=== PATIENT | male | born 1960 | race Caucasian/White ===

== ENCOUNTER 2018-06-14 11:44 | Emergency (ER) | payer SELFPAY ==
[2018-06-14 11:49] VITALS: BP 157/101; PULSE 92; RESP 16; TEMP 36.5; O2SAT 96
--- NOTE | 2018-06-14 12:16 | DI.REPORT_ITS ---
SYMPTOM/DIAGNOSIS: INTERMITTENT SEVERE RT GROIN PAIN, ? TORSION TESTICULAR ULTRASOUND: Routine examination. The right testicle measures 4.5 by 1.9 by 2.9 cm. It is homogeneous with normal blood flow. No evidence of torsion or mass is seen. The epididymis appears grossly unremarkable. The left testicle measures 3.5 by 1.7 by 2.8 cm. It is homogeneous in echogenicity with normal blood flow. No evidence of intratesticular mass or torsion is seen. There is a solitary 1 mm. microcalcification in the left testis. The left epididymis appears unremarkable. There are small bilateral varicoceles, left greater than right. There is a trace right hydrocele. The right inguinal region was evaluated sonographically. No findings to suggest an inguinal hernia are noted. IMPRESSION: Small bilateral varicoceles, left worse than right. Otherwise negative examination.
--- NOTE | 2018-06-14 12:16 | DI.RPTCT_ITS ---
SYMPTOM/DIAGNOSIS: INTERMITTENT SEVERE RT GROIN PAIN, ? HERNIA VERSUS STONE ABDOMEN AND PELVIC CT: Comparison is made with 05/06/18. CT scan of the abdomen and pelvis was performed without intravenous or oral contrast material. The visualized lung bases show no acute abnormality. There does appear to be diffuse decreased attenuation of the liver suggesting hepatic steatosis. The patient is status post cholecystectomy. No biliary ductal dilatation is seen. The unenhanced visualized portions of the spleen, pancreas and adrenal glands are unremarkable. The kidneys show no evidence of nephrolithiasis or hydronephrosis. The urinary bladder is intact. The prostate gland is enlarged impinging upon the base of the urinary bladder. There are calcifications seen within the urinary bladder which appear to be associated with the enlarged prostate gland. No definite bladder stones are seen. There is diverticulosis of the colon but no evidence of acute diverticulitis. No evidence of bowel obstruction or inflammation. No findings to suggest an acute appendicitis are present. A normal appendix is visualized. The abdominal aorta is of normal caliber. No significant abdominal or pelvic adenopathy, ascites or pneumoperitoneum is seen. Multi level degenerative changes are seen in the spine with central spinal canal stenosis seen at L 4-5 due to the degenerative changes. Old compression deformities are seen throughout the thoracic and lumbar spine. There are old right rib fractures again noted. IMPRESSION: No acute abnormality. No evidence of nephrolithiasis or obstructive uropathy.
[2018-06-14] MEDS: Acetaminophen 500 MG TAB 1000 MG PO (12:35)
[2018-06-14] MEDS: Ketorolac 30 MG/ML VIAL IM (12:36)
[2018-06-14 12:41] LABS: Bilirubin Negative (Negative); Blood Negative (Negative); Clarity Clear; Glucose Negative (Negative); Ketones Negative (Negative); Leukocyte Esterase Negative (Negative); Nitrite Negative (Negative); Specific Gravity >= 1.030 (1.005-1.025); Urobilinogen 0.2 EU/dL (Up TO 0.2); pH 5.5 (5-8)
--- NOTE | 2018-06-14 12:49 | ED.GENADUL_ITS ---
Disposition Clinical Impression: Right flank pain Condition: Good Instructions: Flank Pain (ED) Additional Instructions: Please take the medications as directed. Please follow-up with your primary care provider and urologist as soon as possible. If you notice any worsening of your symptoms, or any new symptoms such as vomiting, diarrhea, fever, chills , shortness of breath, chest pain, numbness, weakness, or fainting , please return immediately to the emergency department for reevaluation. Please follow up with your primary care provider as soon as possible for reassessment and reevaluation. As always, it was a pleasure participating in your medical care today. Prescriptions: Acetaminophen [Tylenol Extra Strength] 1,000 mg PO Q6H 5 Days #60 tab Ibuprofen [Motrin Ib] 600 mg PO Q6H 5 Days #60 tablet Lidocaine 5% [Lidoderm 5% Patch] 1 each TP Q24H #4 patch Referrals: Reji Herring [Primary Care Provider] - Medical Decision Making - Lab Data Laboratory Tests 06/14/18 12:30 Urine Color Yellow Urine Clarity Clear Urine pH 5.5 Ur Specific [place] >= 1.030 H Urine Protein Trace H Urine Ketones Negative Urine Blood Negative Urine Nitrite Negative Urine Bilirubin Negative Urine Urobilinogen 0.2 Ur Leukocyte Esterase Negative Urine Glucose Negative - Medical Decision Making This is a 58-year-old male who presents for evaluation of right groin and scrotal pain. Physical exam is relatively benign with no reproducible abdominal tenderness. No flank tenderness. He demonstrates normal neurologic exam with no signs of saddle anesthesia or any signs of weakness in his extremities whatsoever. Sensation is completely intact. Demonstrates a normal scrotal and testicular exam as well. He does have a history of bladder stone which may be confounding variable. With benign physical exam I am uncertain as to the exact cause of his notable pain. We will get a CT scan as well as an ultrasound to evaluate for any acute process. 2: 47 PM The patient's laboratory workup has returned benign. CT scan of the abdomen and pelvis demonstrates no acute process. No evidence of hernia, significant bony abnormality, aside from an old rib fracture on the right, failure acute process. Ultrasound demonstrates a solitary microcalcification of the left testicle, no evidence of torsion, small bilateral varicoceles, left worse than the right. Trace right hydrocele. Reevaluation the patient's pain and symptoms do appear improved at this time. Repeat physical exam continues to demonstrate a normal neurologic exam, no signs of saddle anesthesia, bowel or bladder incontinence, or other abnormality. Reflexes and strength remain intact. No falls or traumas, negative CT scan eluding for osseous abnormalities, and a negative laboratory workup I feel that it is reasonable for him to be discharged home as he does have resolution of his pain. Fortunately we have not elicited a specific answer to his symptoms. I did discuss with the patient during a prolonged conversation the importance of close follow-up with his PCP, as well as potential MRI imaging on an outpatient basis to look for joint or osseous abnormalities including spinal abnormalities. I do not feel that there is any indication for emergent imaging at this time with no focal neurologic deficits are red flags noted on clinical and physical exam. Discussed red flags which returned the patient understands. I have extensively reviewed the treatment plan and discharge instructions with the patient. I have addressed all patient concerns at this time. The patient was made aware of what symptoms to monitor for that would warrant a return to the emergency department. Discussed the plan with the patient, they demonstrate verbal understanding and agreement with our assessment and plan at this time. History of Present Illness - General Chief complaint: Urinary Stated complaint: GROIN PAIN Time Seen by Provider: 06/14/18 12:15 - History of Present Illness Initial comments: This is a 58-year-old male with a past medical history of a bladder stone for which she sees Dr. Medrano, who presents today for evaluation of right- sided groin pain. Patient states that the symptoms have been present for the last 3 weeks. The symptoms come and go in severity but are always there. They are relieved with soaking in the tub, and laying down, and worsened with movement, activity, standing or sitting. He describes it as a sharp stabbing sensation, and it is a 10 out of 10 at its worse, however it will then go away seemingly spontaneously on its own. He describes the pain as his right groin into his right scrotum. There is no radiation down the leg, or in the abdomen. He does note occasional weakness in the right leg but he is unsure if this is secondary to pain or actual weakness. He denies any trauma, falls, or other pathology. He denies any previous surgeries in this area. He denies any diarrhea, dysuria, hematuria, vomiting, increased urinary frequency. Patient denies any history of STDs. He denies any other complaints at this time. He denies any IV or illicit drug use. He denies any pertinent family history. - Related Data Finasteride 5 mg PO DAILY #90 tab-cap 05/08/18 Acetaminophen [Tylenol Extra Strength] 1,000 mg PO Q6H 5 Days #60 tab 06/14/18 Ibuprofen [Motrin Ib] 600 mg PO Q6H 5 Days #60 tablet 06/14/18 Lidocaine 5% [Lidoderm 5% Patch] 1 each TP Q24H #4 patch 06/14/18 Allergies Allergy/AdvReac Type Severity Reaction Status Date / Time No Known Allergies Allergy Unverified 06/14/18 11:55 Review of Systems Other: 10 point review of systems was performed, pertinent positives and negatives are noted in the history of present illness. General Exam - Other Other exam information: 1.Const: Well-nourished, Well-developed, appearing stated age 2.Eyes: PERRL, no conjunctival injection, and symmetrical lids. 3.ENT: Atraumatic external nose and ears. Moist MM. Neck: Symmetric, trachea midline, No thyromegaly. 4.CVS: +S1/S2, No murmurs or gallops. Peripheral pulses 2+ and equal in all extremities. Brisk capillary refill in all extremities. 5.RESP: Unlabored respiratory effort. Clear to auscultation bilaterally. No wheezes rales or rhonchi 6.GI: Soft, Nontender/Nondistended, No hepatosplenomegaly. No guarding or rebound. No abdominal tenderness on palpation. No evidence of herniation, no bulging on Valsalva. No reproducible tenderness in the pelvic region. Stable hip and pelvis. 7.MSK: Normocephalic/Atraumatic, Extremities w/o deformity or ttp No cyanosis or clubbing, Normal movement of all extremities. No pain with logroll. Normal strength in extremity, No midline tenderness to palpation over the CTLS spine. Normal ROM in flexion, extension, side bend, and rotation. Patient has +5 out of 5 strength in the lower extremities in dorsiflexion and plantarflexion, knee flexion and extension, hip flexion and extension. There is +2 over 2 dorsalis pedis pulses bilaterally. There is normal sensation to the skin with light touch at the foot, knee, and hip. Normal saddle sensation. Good sensation over the deep sural nerve area bilaterally. Rectal exam deferred. Reflexes are +2 over 4 in the patellar reflex bilaterally. +5 out of 5 strength in the medial, ulnar, radial nerve distribution bilaterally in the hands as well as intact light touch sensation to these dermatomes on the hands 8.Skin: Warm, Dry. No rashes or lesions. 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 Sensation grossly intact, no focal neurologic deficits. 10.Psych: (AAO) x3. Appropriate mood and affect Genitourinary exam: Uncircumcised penis, bilaterally descended testicles. Normal cremasteric reflex bilaterally. No testicular tenderness. Mild testicular varicoceles are noted. No tenderness on palpation. No penile discharge, or penile tenderness. Course Vital Signs - 24 hr 06/14/18 11:49 Temperature 36.5 C Pulse 92 H Respiratory 16 Rate Blood Pressure 157/101 Pulse Oximetry 96
[2018-06-14 12:51] LABS: Bacteria Few HPF (Negative); Crystals Negative HPF (Negative); Epithelial Cells Rare HPF (Negative); Mucus Moderate (Negative); RBC Negative (0-2); WBC 0-2 HPF (0-5)
[2018-06-14 12:52] LABS: C & S Indicated? No
[2018-06-14 12:57] LABS: Abs Immature Grans 0.03 k/cumm (0.0-0.09); Absolute Basophil Count 0.02 k/cumm (0.0-0.2); Absolute Eosinophil Count 0.05 k/cumm (0.0-0.7); Absolute Lymphocyte Count 1.35 k/cumm (1.2-3.4); Absolute Monocyte Count 0.72 k/cumm (0.11-0.7); Absolute Neutrophil Count 5.73 k/cumm (1.2-6.7); Basophils % 0.3; Eosinophils % 0.6; Immature Grans % 0.4; Lymphocytes % 17.1; Mean Corp. HGB Concentration 35.6 g/dL (32.0-36.0); Mean Corpuscular Hemoglobin 30.9 pg (27.0-33.0); Mean Platelet Volume 10.4 fL (8.0-11.0); Monocytes % 9.1; Neutrophils % 72.5; Platelet Count 237 x1000/uL (130-400); RBC 5.17 m/cumm (4.50-6.00); RBC Distribution Width 12.8 % (11.8-14.1)
[2018-06-14 13:09] LABS: ALT 70 U/L (12-78); AST 30 U/L (15-37); Albumin 3.7 g/dL (3.4-5.0); Alkaline Phosphatase 118 U/L (46-116); Anion Gap 3.5 mmol/L (3-11); BUN 13 mg/dL (7-18); Bilirubin, Total 0.6 mg/dL (0.2-1.0); CO2 29.5 mmol/L (21.0-32.0); CREATININE 1.01 mg/dL (0.70-1.30); Calcium 8.3 mg/dL (8.5-10.1); Chloride 105 mmol/L (98-107); Glucose 106 mg/dL (70-100); Potassium 4.1 mmol/L (3.5-5.1); Sodium 138 mmol/L (136-145); Total Protein 7.1 g/dL (6.4-8.2)
--- NOTE | 2018-06-14 13:45 | DI.VRAD_ITS ---
EXAM: US Scrotum EXAM DATE/TIME: 06/14/2018 1:28 PM CLINICAL HISTORY: 58 years old, male; Signs and symptoms; Other: Right groin/testicular pain intermittently x 10 days; Prior surgery; Surgery date: 6+ months; Surgery type: Vasectomy TECHNIQUE: Real-time ultrasound of the scrotum with color Doppler and image documentation. COMPARISON: No relevant prior studies available. FINDINGS: Right testicle: Unremarkable. No mass. No torsion. Left testicle: Solitary microcalcification left testis, 1 mm. No torsion. Epididymides: Unremarkable. Scrotum: There are small bilateral varicoceles, left worse than right. Trace right hydrocele. Inguinal canal: No sonographic evidence for right inguinal hernia. IMPRESSION: Small bilateral varicoceles, left worse than right. Preliminary interpretation is based on receipt of 83 image(s). A final report will be issued subsequently. We appreciate the opportunity to be involved in this patient's care. Dictated and Authenticated by: Pam Potter MD. Ordering:SKINNY WALKER MD
--- NOTE | 2018-06-14 14:04 | DI.VRAD_ITS ---
EXAM: CT Abdomen and Pelvis Without Intravenous Contrast EXAM DATE/TIME: 06/14/2018 12:18 PM CLINICAL HISTORY: 58 years old, male; Signs and symptoms; Other: Intermittent severe right groin pain, concern for hernia versus stone TECHNIQUE: Axial computed tomography images of the abdomen and pelvis without intravenous contrast. All CT scans at this facility use at least one of these dose optimization techniques: automated exposure control; mA and/or kV adjustment per patient size (includes targeted exams where dose is matched to clinical indication); or iterative reconstruction. Coronal and sagittal reformatted images were created and reviewed. COMPARISON: CT - ABD/PELVIS WO W CONTRAST 05/06/2018 8:55 AM FINDINGS: Lung bases: Unremarkable. No mass. No consolidation. ABDOMEN: Liver: Mild fatty liver again seen. Gallbladder and bile ducts: Status post cholecystectomy. No ductal dilation. Pancreas: Unremarkable. No ductal dilation. Spleen: Unremarkable. No splenomegaly. Adrenals: Unremarkable. No mass. Kidneys and ureters: Unremarkable. No obstructing stones. No hydronephrosis. Stomach and bowel: Unremarkable. No obstruction. No mucosal thickening. PELVIS: Appendix: No findings to suggest acute appendicitis. Bladder: Unremarkable. No stones. Reproductive: Prostate enlarged measures up to 5.1 cm in diameter. ABDOMEN and PELVIS: Intraperitoneal space: Unremarkable. No free air. No significant fluid collection. Bones/joints: Right chest wall deformity from old rib fractures noted anteriorly. No dislocation. Soft tissues: Unremarkable. Vasculature: Mild atherosclerotic change present in the vasculature. No abdominal aortic aneurysm. Lymph nodes: Unremarkable. No enlarged lymph nodes. IMPRESSION: No acute abnormality seen to account for symptoms. Preliminary interpretation is based on receipt of 407 image(s). A final report will be issued subsequently. We appreciate the opportunity to be involved in this patient's care. Dictated and Authenticated by: Pam Potter MD. Ordering:SKINNY WALKER MD
[2018-06-14 15:00] VITALS: BP 147/99; PULSE 79; RESP 16; TEMP 36.5; O2SAT 97
[2018-06-16 13:25] LABS: Chlamydia Result Negative; GC Result Negative; Specimen Description URINE
== END 2018-06-14 15:01 ==
LOC: ER 07-02 16:15
PROVIDERS: Emergency Provider Student in an Organized Health Care Education/Training Program; PCP Family Medicine
DX: R10.31 Right lower quadrant pain (principal); N50.82 Scrotal pain; Z87.442 Personal history of urinary calculi
CPT/HCPCS: 36415; 80053; 87491; 87591; 96372; 99285; 74176; 76870; 81003; 81015; 85025; 99284; J1885

== ENCOUNTER 2018-07-06 11:22 | Day surgery (SDC) | payer SELFPAY ==
--- NOTE | 2018-07-06 11:28 | W.PM.HP.N ---
Assessment and Plan (1) Gross hematuria: Current visit: Yes Status: Acute For cystoscopy with resection of tissue at the bladder neck. His ultimate treatment will depend on the pathology result. (2) Elevated PSA, less than 10 ng/ml: Current visit: No Status: None CC: Hematuria This is 58 year old man who has a history of pelvic pain and lower urinary tract symptoms. He has seen intermittent gross hematuria. He was evaluated with a CT urogram. His scan showed a nonobstructing right sided kidney stone. He was also found to have an irregular area at the junction of the prostate and bladder. I did a cystoscopy in the office. We identified abnormal mucosa at the bladder neck. Stone was identified trapped in this abnormal mucosa. He presents for resection of this area. Review of Systems Constitutional Denies chills and Reports fatigue Eyes Patient Reports loss of peripheral vision ENT Denies dysphagia Cardiovascular Denies chest pain, Denies syncope and Denies palpitations Respiratory Denies cough and Denies hemoptysis Gastrointestinal Denies dysphagia and Reports vomiting Musculoskeletal Reports arthralgias Neurologic Denies syncope Endocrine Reports fatigue and Denies palpitations Hematologic/Lymphatic Denies easy bleeding PFSH Family History Mother No problems noted. Father No problems noted. Sister No problems noted. Brother No problems noted. Grandfather No problems noted. Grandfather No problems noted. Grandmother No problems noted. Grandmother No problems noted. 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
[2018-07-06 11:48] VITALS: BP 136/101; PULSE 72; RESP 16; TEMP 36.8; O2SAT 96
[2018-07-06] MEDS: Lactated Ringers 1,000 ML 80 ML IV (12:00)
[2018-07-06] MEDS: Lidocaine 2% Jelly 6 ML SYR (13:36)
--- NOTE | 2018-07-06 13:43 | BLADDER_PTH ---
PATIENT: Adiel Rome LOC: [facility] U#:[id number] AGE/SX: 58/M ROOM: RE07/06/[address]: Ki Medrano MD : 1960 BED: DIS: 07/06/2018 SPEC #: [id number] RECD: 07/06/18 17:31 STATUS: SHAUNA RE #: [id number] АНДРЕЙ: 07/06/18 13:[address]: Ki Medrano DEPT: Surgical Specimen RECD BY: Vandana Nichols ENTERED: 07/06/18 17:32 SP TYPE: Bladder OTHR DR: Reji Herring MD Tissues: 1 - BLADDER CURRETTINGS Procedures: GROSS AND MICRO LEVEL 5 Comments: [id number]
--- NOTE | 2018-07-06 13:49 | W.PM.DSUDISC ---
Discharge Plan Disposition Patient Disposition: HOME Condition: Good Discharge Details Reason For Visit: gross hematuria Attending Provider: Ki Medrano Primary Care Provider: Reji Herring Home Meds and New Rx's Prescriptions: Continue finasteride 5 MG tablet 5 mg PO DAILY Qty: 90 RF: 4 acetaminophen [Mapap Extra Strength] 500 MG tablet 1,000 mg PO Q6H 5 Days Qty: 60 RF: 0 lidocaine [Lidoderm] 1 PATCH adhesive patch,medicated 1 ea Topical Q24H Qty: 4 RF: 0 Ibuprofen [Motrin Ib] 200 MG Tablet 600 mg PO Q6H 5 Days Qty: 60 RF: 0 Discharge Instructions Additional Instructions: Remove lackey when pt awake Follow up with me 1 to 2 weeks to review pathology results OK to shower/bathe Activity:: Activity as Tolerated Diet:: no restrictions Discharge Orders Discharge Orders: Discharge Order (Routine); Ordered 07/06/18 Ordered By: Ki Medrano DS: Diagnosis Discharge Diagnosis (1) Gross hematuria: Status: Acute (2) Elevated PSA, less than 10 ng/ml: Status: None
[2018-07-06 14:25] VITALS: BP 124/75; PULSE 78; RESP 18; TEMP 36.4; O2SAT 96
[2018-07-06] MEDS: Phenazopyridine 200 MG TAB PO (14:58)
[2018-07-06] MEDS: Normal Saline Flush 10 ML SYR IV (14:59)
--- NOTE | 2018-07-06 16:28 | ROE_ITS ---
DATE OF OPERATION: July 06, 2018 PREOPERATIVE DIAGNOSIS: Gross hematuria. POSTOPERATIVE DIAGNOSIS: Gross hematuria. PROCEDURE: Cystoscopy; transurethral resection of bladder/prostate lesion; evacuation of bladder sto ne. SURGEON: Ki Medrano M.D. ANESTHESIA: MAC with local. COMPLICATIONS: None. ESTIMATED BLOOD LOSS: Minimal. SPECIMENS OBTAINED: #1. Prostate/bladder tissue. #2. Bladder stone. HISTORY: This is a 58-year-old gentleman who has had intermittent gross hematuria. He also has some chronic pelvic pain. He was evaluated with a CT urogram that demonstrated a nonobstructing kidney s tone as well as what appeared to be a stone within the bladder. We did a cystoscopy in the office. At the bladder neck there was a large amount of inflammatory tiss ue with what appeared to be some calcifications entrapped. He presents now for cystoscopy with resec tion of the abnormal mucosa and evacuation of the stone. OPERATIVE REPORT: The patient was brought to the Operating Room on 07/06/18. He was given preoperati ve IV antibiotics. After successful induction of monitored anesthesia care, he was placed in the yvonne raine lithotomy position. His genitalia was prepped and draped. Two percent Xylocaine jelly was insti lled into the urethra to act as a local anesthetic. A 24 Welsh resectoscope sheath was passed through the urethra into the bladder. We used the visual obturator to reinspect the urethra. The pendulous, bulbous, and membranous urethras all appeared nor mal. The prostatic urethra showed lateral lobe enlargement. Again, we identified the bullous lesion s at the bladder neck as well as the previously identified bladder stone. We removed the visual obturator and switched to an Monreal resectoscope. We resected the abnormal t issue and were able to evacuate the stone. The base of the resected area was cauterized using the co agulation button. The prostate and bladder neck tissue was sent to Pathology for permanent section. The stone was sent separately for chemical analysis. We placed a urethral catheter until the patient was more awake. We plan on removing the catheter cori or to discharge. Follow-up treatments will all depend on his surgical pathology.
== END 2018-07-06 15:40 | disposition home or self-care (01) ==
PROVIDERS: PCP Family Medicine; Visit Provider Urology
PROC: 0TBB8ZX Excision of Bladder, Via Natural or Artificial Opening Endoscopic, Diagnostic (ICD-10-PCS; CPT 52204; principal; 2018-07-06 12:00)
DX: N30.81 Other cystitis with hematuria (principal); N20.0 Calculus of kidney; N21.0 Calculus in bladder; R10.2 Pelvic and perineal pain; R31.0 Gross hematuria; K21.9 Gastro-esophageal reflux disease without esophagitis; N40.0 Benign prostatic hyperplasia without lower urinary tract symptoms
CPT/HCPCS: 52310; 52500; NC; 82360; 88307; J0690; J1100; J2250; J2405

== ENCOUNTER 2018-11-02 16:15 | Outpatient (CLI) | payer SELFPAY | END 2018-11-02 16:35 | PROVIDERS: PCP Family Medicine; Visit Provider Urology | DX: R35.0 Frequency of micturition (principal); R97.20 Elevated prostate specific antigen [PSA] | CPT/HCPCS: 36415; 84154 ==

== ENCOUNTER 2019-01-05 00:31 | Outpatient (CLI) | payer SELFPAY ==
--- NOTE | 2019-01-05 11:25 | DI.US_ITS ---
SYMPTOM/DIAGNOSIS: ? RESIDUAL BLADDER, BLADDER STONE, N21.0, CALCULUS OF BLADDER RENAL ULTRASOUND: The right kidney measures 10.8 by 6.5 by 5.8 cm. The left kidney measures 13.0 by 6.3 by 7.2 cm. A 6 mm. echogenic region is noted in the inferior portion of the right kidney consistent with nephrolithiasis. The prevoid bladder contains 278 cc's. The postvoid bladder contains 252 cc's. The bladder wall is 2 mm. thick. Both ureteral jets were visualized. The prostate measures 5.2 by 5.6 by 5.5 cm. for a volume of 83 cc's. Note is made of what appears to represent a rounded nodule adjacent to the prostate gland which likely represents a lobulated portion of the enlarged prostate. The possibility of a bladder wall mass could not be entirely excluded. This regions measures 11 by 13 by 12 mm. and has minimal color flow. This nodular region is isoechoic with the prostate gland. IMPRESSION: Findings consistent with right nephrolithiasis. Prostate is enlarged and is nodular. There is a question regarding a bladder wall lesion versus a nodular region originating from the prostate as described above. No bladder calculus is demonstrated on today's examination. Correlation of the above findings with the patient's clinical status could include cystoscopy and if appropriate, CT.
== END 2019-01-05 00:51 ==
PROVIDERS: PCP Family Medicine; Visit Provider Urology
DX: N20.0 Calculus of kidney (principal); N40.0 Benign prostatic hyperplasia without lower urinary tract symptoms; N32.89 Other specified disorders of bladder
CPT/HCPCS: 76770

== ENCOUNTER 2019-01-14 09:02 | Observation (INO) | payer SELFPAY ==
[2019-01-11 10:30] VITALS: BP 136/88; PULSE 65; RESP 18; TEMP 34.9; O2SAT 97
[2019-01-14] VITALS (14 sets, daily range): BP systolic 115–152; BP diastolic 23–105; PULSE 55–88; RESP 15–19; TEMP 34.9–36.4; O2SAT 94–100
[2019-01-14] MEDS: Lactated Ringers 1,000 ML 80 ML IV ×2 (06:48→09:09)
--- NOTE | 2019-01-14 07:06 | HPE_ITS ---
Date of service: 01/14/19 Time of Service: 07:03 Assessment and Plan (1) Lower urinary tract symptoms (LUTS): Current visit: No Status: Acute Since he has failed maximal medical therapy, we will proceed with t ransurethral resection of the prostate. The patient would like to avoid an overnight stay if at all possible. We will plan on running bladder irrigation short-term postop and see if he is able to be discharged with his catheter this afternoon. History of Present Illness Chief Complaint: Lower urinary tract symptoms Narrative: This is a 58-year-old gentleman with a history of lower urinary tract symptoms including slow urinary stream and straining to void. He has had stones form in his bladder and be adherent to his prostatic mucosa in the past. We removed his stone cystoscopically. He has failed maximal medical therapy for his LUTS. He presents for transurethral resection of prostate. He denies any current dysuria or complete retention. He has no gross hematuria since his bladder stone has been removed. He does have chronic pelvic pain. We explained that the surgery is expected to help his lower urinary tract symptoms but may have no effect whatsoever on the pelvic pain. Review of Systems Review of Systems No fevers or chills No vision change or dysphasia No diabetes or thyroid. Decreased libido. No shortness of breath, cough or hemoptysis No chest pain or palpitations No nausea, vomiting, hepatitis, ulcers, jaundice, diarrhea or constipation No seizures, strokes or peripheral neuropathy No bleeding disorders or anemia Hx arthralgia. No gout PFSH Family History Mother No problems noted. Father No problems noted. Sister No problems noted. Brother No problems noted. Grandfather No problems noted. Grandfather No problems noted. Grandmother No problems noted. Grandmother No problems noted. Social History Smoking/Tobacco Use Status: Never Drug use: Never Do you feel safe in your relationship?: Yes Meds Home Medications Medication Instructions Recorded Confirmed Type finasteride 5 mg PO DAILY #90 tab-cap 05/08/18 01/14/19 Rx Ibuprofen [Motrin Ib] 600 mg PO Q6H 5 Days #60 tablet 06/14/18 01/14/19 Rx acetaminophen [Mapap Extra 1,000 mg PO Q6H 5 Days #60 tab 06/14/18 01/11/19 Rx Strength] gabapentin 600 mg tablet 600 mg PO HS #90 tab 08/06/18 01/14/19 Rx ibuprofen-diphenhydramine cit 3 tab PO PRN PRN 01/14/19 01/14/19 History [Advil PM] Allergies Allergy/AdvReac Type Severity Reaction Status Date / Time No Known Allergies Allergy Unverified 01/14/19 06:19 Exam Const General: comfortable and no acute distress Neck Neck: normal visual inspection and supple Resp Effort & Inspection: normal respiratory effort Auscultation: clear to auscultation bilaterally Cardio Rate: regular rate Rhythm: regular rhythm GI Inspection: normal to inspection Palpation: soft and nontender Neuro General: alert, awake and oriented x3 Results Last Vital Signs Temp 34.9 C L 01/14/19 06:34 Pulse 65 01/14/19 06:34 Resp 18 01/14/19 06:34 BP 136/88 01/14/19 06:34 Pulse Ox 97 01/14/19 06:34
[2019-01-14] MEDS: ceFAZolin 2 GM/50 ML BAG IVPB (07:36)
[2019-01-14] MEDS: Lidocaine 2% Jelly 6 ML SYR (07:54)
--- NOTE | 2019-01-14 08:55 | PROST_PTH ---
PATIENT: Adiel Rome LOC: U#:[id number] AGE/SX: 58/M ROOM: RE01/14/[address]: Ki Medrano MD : [id number] BED: A DIS: 01/15/2019 SPEC #: [id number] RECD: 01/14/19 12:50 STATUS: SHAUNA REQ #: [id number] АНДРЕЙ: 01/14/19 08:[address]: Ki Medrano DEPT: Surgical Specimen RECD BY: Vandana Nichols ENTERED: 01/14/19 12:50 SP TYPE: PROST OTHR DR: Reji Herring MD Tissues: 1 - PROSTATE CURRETTINGS Procedures: GROSS AND MICRO LEVEL 4 Comments: [id number]
--- NOTE | 2019-01-14 10:34 | ROE_ITS ---
REPORT OF OPERATIVE PROCEDURE DATE OF PROCEDURE January 14, 2019 PREOPERATIVE DIAGNOSIS Lower urinary tract symptoms. POSTOPERATIVE DIAGNOSIS Lower urinary tract symptoms. PROCEDURE Cystoscopy with transurethral resection of the prostate. SURGEON Ki Medrano M.D. ANESTHESIA General. COMPLICATIONS None. ESTIMATED BLOOD LOSS 250 cc HISTORY This is a 58-year-old gentleman who has a history of lower urinary tract symptoms. His symptoms have progressed in spite of maximal medical therapy. He presents now for transurethral resection of his pr ostate. OPERATIVE REPORT The patient was brought to the Operating Room on 01/14/2019. He was given preoperative IV antibiotic s. After successful induction of general anesthesia, he was placed in the dorsal lithotomy position. His genitalia was prepped and draped. 2% Xylocaine jelly was instilled into the urethra. A #24-Icelandic resectoscope sheath was passed through the urethra into the bladder. We used the visual obturator to inspect the urethra with a 30-degree lens. The pendulous, bulbous and membranous urethras all appeared normal. The prostatic urethra showed trilobar enlargement. There were inflammatory polyps on the prostate out toward the verumontanum. A larger amount of inflammatory tissue was seen at the bladder neck, especi ally between the 3 and 6 o'clock positions. The remainder of the bladder showed no papillary or nodular lesions. No additional stones were seen w ithin the bladder (he has a history of bladder stones previously). We then utilized bipolar cautery an Free-lance.ru resectoscope to resect the prostate tissue from the blad toby neck out to the verumontanum. The depth of the resection was down to the prostatitic capsule. All resected tissue was evacuated and sent to Pathology for permanent section. We then switched over to the vaporization button and vaporized the base of the resection and remaining prostate tissue unti l hemostasis had been obtained. The prostatic fossa appeared wide open at the completion of the proce dure. Once all prostate chips and clots were evacuated, we passed a #24-Icelandic hematuria catheter through t he urethra into the bladder. We inflated the catheter balloon with 30 cc of sterile water and hooked the catheter to gravity drainage. We then began continuous bladder irrigation and placed traction on the catheter until the irrigation became clear. The patient tolerated this procedure well with no complications. We estimate that his blood loss was approximately 250 cc.
[2019-01-14] MEDS: traMADol 50 MG TAB PO ×2 (14:17→21:46)
--- NOTE | 2019-01-14 17:52 | NUR.NOTE ---
Nursing Note: 1022: pt arrives to room 231 via stretcher from pacu. pt has CBI in place with pink to cunningham urine. pt moved self from stretcher to bed independently. pt has patent IV to with LR. see vs for further interventions.
[2019-01-14] MEDS: Lactated Ringers 1,000 ML 100 ML IV (18:17)
[2019-01-14] MEDS: Gabapentin 600 MG TAB PO (21:46)
[2019-01-15 00:25] VITALS: BP 134/85; PULSE 98; RESP 18; TEMP 37.1; O2SAT 96
[2019-01-15] MEDS: traMADol 50 MG TAB PO (03:57)
[2019-01-15] MEDS: Lactated Ringers 1,000 ML 100 ML IV (03:58)
[2019-01-15 03:59] VITALS: BP 145/80; PULSE 70; RESP 18; TEMP 36.8; O2SAT 97
[2019-01-15 06:01] LABS: HCT 36.9 % (40.0-50.0)
[2019-01-15 06:15] LABS: Anion Gap 7.5 mmol/L (3-11); BUN 16 mg/dL (7-18); CO2 29.5 mmol/L (21.0-32.0); CREATININE 0.88 mg/dL (0.70-1.30); Calcium 7.9 mg/dL (8.5-10.1); Chloride 104 mmol/L (98-107); Glucose 124 mg/dL (70-100); Potassium 3.7 mmol/L (3.5-5.1); Sodium 141 mmol/L (136-145)
--- NOTE | 2019-01-15 07:42 | W.PM.DS.N ---
Date of service: 01/15/19 Time of Service: 07:42 DS: Diagnosis Discharge Diagnosis (1) Lower urinary tract symptoms (LUTS): Status: Acute Discharge Plan Disposition Patient Disposition: HOME Condition: Stable Discharge Details Reason For Visit: surgery Admit Date/Time: 01/14/19 06:10 Admit Provider: Ki Medrano Attending Provider: Ki Medrano Primary Care Provider: Reji Herring Hospital Course Hospital Course: The patient was taken to the operating room on 01/14/2019 where he underwent a transurethral resection of the prostate. In the postoperative period, he was maintained with an irrigating catheter and continuous bladder irrigation. By postoperative day #1, the irrigant was clear. He remained afebrile and fairly comfortable. He is being discharged to home with his Lackey catheter in place. Home Meds and New Rx's Prescriptions: No Action tramadol 50 mg tablet 50 mg PO Q6H PRN (Reason: pain) Qty: 12 RF: 0 sulfamethoxazole-trimethoprim [Bactrim DS] 800-160 mg tablet 1 tab PO DAILY Qty: 7 RF: 0 finasteride 5 MG tablet 5 mg PO DAILY Qty: 90 RF: 4 gabapentin 600 mg tablet 600 mg PO HS Qty: 90 RF: 4 acetaminophen [Mapap Extra Strength] 500 MG tablet 1,000 mg PO Q6H 5 Days Qty: 60 RF: 0 Ibuprofen [Motrin Ib] 200 MG Tablet 600 mg PO Q6H 5 Days Qty: 60 RF: 0 ibuprofen-diphenhydramine cit [Advil PM] 200-38 mg Tablet 3 tab PO PRN PRNRF: 0 Discharge Instructions Additional Instructions: lackey to leg bag no lifting/straining OK to drive OK to shower F/U early next week for catheter removal script for pain med printed and signed script for antibiotic sent to [facility] [place] Activity:: see above Equipment/Supplies:: lackey to leg bag Diet:: As Tolerated Discharge Orders Discharge Orders: Discharge Order (Routine); Ordered 01/15/19 Ordered By: Ki Medrano DS: Data Vitals/I&O Vitals and I&O: Vital Signs Temperature 36.8 C 01/15/19 03:59 Temperature Source Temporal Artery Scan 01/15/19 03:59 Pulse 70 01/15/19 03:59 Pulse Rhythm Regular 01/14/19 06:34 Respiratory Rate 18 01/15/19 03:59 Respiratory Effort Non-Labored 01/15/19 00:25 Respiratory Depth Normal 01/15/19 00:25 Respiratory Pattern Normal 01/15/19 00:25 Blood Pressure 145/80 H 01/15/19 03:59 Pulse Oximetry 97 01/15/19 03:59 Respiratory End-tidal CO2 44 01/14/19 09:50 Oxygen Delivery Method Room Air 01/15/19 03:59 Oxygen Flow Rate 0 01/15/19 03:59 Pain Level 5 01/14/19 14:17 Intake & Output 01/14/19 01/14/19 01/15/19 11:59 23:59 11:59 Intake Total 1150 / 1730 580 / 1730 2168.333 / 2168.333 Balance 1150 / 1730 580 / 1730 2168.333 / 2168.333 Weight 105.9 kg Intake: IV 1150 / 1250 100 / 1250 1968.333 / 1968.333 Oral 480 / 480 200 / 200 Other: Urine Color Nix Nix [place] Urine Appearance Clear Hematuria Hematuria Hematuria Stool Size Moderate Stool Characteristics Soft Liquid Brown Emesis Description None Labs on day of discharge: Labs from last 24 hours 01/15/19 01/15/19 05:50 05:50 Hgb 13.0 L Hct 36.9 L Sodium 141 Potassium 3.7 Chloride 104 Carbon Dioxide 29.5 Anion Gap 7.5 BUN 16 Creatinine 0.88 Estimated GFR/1.73 m2 >= 60.00 Glucose 124 H Calcium 7.9 L [facility] Medical History Gross hematuria (Acute) BPH (benign prostatic hyperplasia) (Chronic) Varicocele present on ultrasound of scrotum (Chronic) Elevated PSA, less than 10 ng/ml Surgical History History of cystoscopy (Acute) Cholecystectomy (08/26/17) Family History Mother No problems noted. Father No problems noted. Sister No problems noted. Brother No problems noted. Grandfather No problems noted. Grandfather No problems noted. Grandmother No problems noted. Grandmother No problems noted. Social History Smoking/Tobacco Use Status: Never Drug use: Never Do you feel safe in your relationship?: Yes
--- NOTE | 2019-01-15 07:45 | DSE_ITS ---
Date of service: 01/15/19 Time of Service: 07:42 DS: Diagnosis Discharge Diagnosis (1) Lower urinary tract symptoms (LUTS): Status: Acute Discharge Plan Disposition Patient Disposition: HOME Condition: Stable Discharge Details Reason For Visit: surgery Admit Date/Time: 01/14/19 06:10 Admit Provider: Ki Medrano Attending Provider: Ki Medrano Primary Care Provider: Reji Herring Hospital Course Hospital Course: The patient was taken to the operating room on 01/14/2019 where he underwent a transurethral resection of the prostate. In the postoperative period, he was maintained with an irrigating catheter and continuous bladder irrigation. By postoperative day #1, the irrigant was clear. He remained afebrile and fair ly comfortable. He is being discharged to home with his Lackey catheter in place. Home Meds and New Rx's Prescriptions: No Action tramadol 50 mg tablet 50 mg PO Q6H PRN (Reason: pain) Qty: 12 RF: 0 sulfamethoxazole-trimethoprim [Bactrim DS] 800-160 mg tablet 1 tab PO DAILY Qty: 7 RF: 0 finasteride 5 MG tablet 5 mg PO DAILY Qty: 90 RF: 4 gabapentin 600 mg tablet 600 mg PO HS Qty: 90 RF: 4 acetaminophen [Mapap Extra Strength] 500 MG tablet 1,000 mg PO Q6H 5 Days Qty: 60 RF: 0 Ibuprofen [Motrin Ib] 200 MG Tablet 600 mg PO Q6H 5 Days Qty: 60 RF: 0 ibuprofen-diphenhydramine cit [Advil PM] 200-38 mg Tablet 3 tab PO PRN PRNRF: 0 Discharge Instructions Additional Instructions: lackey to leg bag no lifting/straining OK to drive OK to shower F/U early next week for catheter removal script for pain med printed and signed script for antibiotic sent to [facility] [place] Activity:: see above Equipment/Supplies:: lackey to leg bag Diet:: As Tolerated Discharge Orders Discharge Orders: Discharge Order (Routine); Ordered 01/15/19 Ordered By: Ki Medrano DS: Data Vitals/I&O Vitals and I&O: Vital Signs Temperature 36.8 C 01/15/19 03:59 Temperature Source Temporal Artery Scan 01/15/19 03:59 Pulse 70 01/15/19 03:59 Pulse Rhythm Regular 01/14/19 06:34 Respiratory Rate 18 01/15/19 03:59 Respiratory Effort Non-Labored 01/15/19 00:25 Respiratory Depth Normal 01/15/19 00:25 Respiratory Pattern Normal 01/15/19 00:25 Blood Pressure 145/80 H 01/15/19 03:59 Pulse Oximetry 97 01/15/19 03:59 Respiratory End-tidal CO2 44 01/14/19 09:50 Oxygen Delivery Method Room Air 01/15/19 03:59 Oxygen Flow Rate 0 01/15/19 03:59 Pain Level 5 01/14/19 14:17 Intake & Output 01/14/19 01/14/19 01/15/19 11:59 23:59 11:59 Intake Total 1150 / 1730 580 / 1730 2168.333 / 2168.333 Balance 1150 / 1730 580 / 1730 2168.333 / 2168.333 Weight 105.9 kg Intake: IV 1150 / 1250 100 / 1250 1968.333 / 1968.333 Oral 480 / 480 200 / 200 Other: Urine Color Nix Nix [place] Urine Appearance Clear Hematuria Hematuria Hematuria Stool Size Moderate Stool Characteristics Soft Liquid Brown Emesis Description None Labs on day of discharge: Labs from last 24 hours 01/15/19 01/15/19 05:50 05:50 Hgb 13.0 L Hct 36.9 L Sodium 141 Potassium 3.7 Chloride 104 Carbon Dioxide 29.5 Anion Gap 7.5 BUN 16 Creatinine 0.88 Estimated GFR/1.73 m2 >= 60.00 Glucose 124 H Calcium 7.9 L [facility] Medical History Gross hematuria (Acute) BPH (benign prostatic hyperplasia) (Chronic) Varicocele present on ultrasound of scrotum (Chronic) Elevated PSA, less than 10 ng/ml Surgical History History of cystoscopy (Acute) Cholecystectomy (08/26/17) Family History Mother No problems noted. Father No problems noted. Sister No problems noted. Brother No problems noted. Grandfather No problems noted. Grandfather No problems noted. Grandmother No problems noted. Grandmother No problems noted. Social History Smoking/Tobacco Use Status: Never Drug use: Never Do you feel safe in your relationship?: Yes
[2019-01-15 07:50] VITALS: BP 159/93; PULSE 89; RESP 18; TEMP 36.5; O2SAT 99
--- NOTE | 2019-01-15 07:56 | W.PM.PROGNOT ---
Date of Service Date of service: 01/15/19 Time of Service: 07:56 Assessment and Plan (1) Lower urinary tract symptoms (LUTS): Current visit: No Status: Acute We will discontinue bladder irrigation and IV fluids. Long as his urine remains transparent, he can be discharged later today. He will follow-up in my office next week to have his catheter removed. Subjective Interval history since last seen: He remained fairly comfortable overnight. He did require BNO suppository for spasms, but did not have any clot retention. Exam Narrative Exam Narrative: He is in no current distress. He is cooperative. Vital signs are documented elsewhere. His urine is clear with slow CBI. He is awake and alert Objective Objective Clinical Data: Abnormal lab results 01/15/19 01/15/19 Range/Units 05:50 05:50 Hgb 13.0 L (13.5-17.5) g/dL Hct 36.9 L (40.0-50.0) % Glucose 124 H (70-100) mg/dL Calcium 7.9 L (8.5-10.1) mg/dL Vital Signs Temperature 36.8 C 01/15/19 03:59 Temperature Source Temporal Artery Scan 01/15/19 03:59 Pulse 70 01/15/19 03:59 Pulse Rhythm Regular 01/14/19 06:34 Respiratory Rate 18 01/15/19 03:59 Respiratory Effort Non-Labored 01/15/19 00:25 Respiratory Depth Normal 01/15/19 00:25 Respiratory Pattern Normal 01/15/19 00:25 Blood Pressure 145/80 H 01/15/19 03:59 Pulse Oximetry 97 01/15/19 03:59 Respiratory End-tidal CO2 44 01/14/19 09:50 Oxygen Delivery Method Room Air 01/15/19 03:59 Oxygen Flow Rate 0 01/15/19 03:59 Pain Level 5 01/14/19 14:17 Intake & Output 01/14/19 01/14/19 01/15/19 11:59 23:59 11:59 Intake Total 1150 / 1730 580 / 1730 2168.333 / 2168.333 Balance 1150 / 1730 580 / 1730 2168.333 / 2168.333 Weight 105.9 kg Intake: IV 1150 / 1250 100 / 1250 1968.333 / 1968.333 Oral 480 / 480 200 / 200 Other: Urine Color Nix Nix [place] Urine Appearance Clear Hematuria Hematuria Hematuria Stool Size Moderate Stool Characteristics Soft Liquid Brown Emesis Description None Laboratory Results Hgb 13.0 g/dL (13.5-17.5) L 01/15/19 05:50 Hct 36.9 % (40.0-50.0) L 01/15/19 05:50 Sodium 141 mmol/L (136-145) 01/15/19 05:50 Potassium 3.7 mmol/L (3.5-5.1) 01/15/19 05:50 Chloride 104 mmol/L (98-107) 01/15/19 05:50 Carbon Dioxide 29.5 mmol/L (21.0-32.0) 01/15/19 05:50 Anion Gap 7.5 mmol/L (3-11) 01/15/19 05:50 BUN 16 mg/dL (7-18) 01/15/19 05:50 Creatinine 0.88 mg/dL (0.70-1.30) 01/15/19 05:50 Estimated GFR/1.73 m2 >= 60.00 (mL/min/1.73m2) 01/15/19 05:50 Glucose 124 mg/dL (70-100) H 01/15/19 05:50 Calcium 7.9 mg/dL (8.5-10.1) L 01/15/19 05:50
[2019-01-15] MEDS: Finasteride 5 MG TAB PO (08:53)
--- NOTE | 2019-01-15 10:40 | INITIAL_ITS ---
- If Service Date Differs Date of service: 01/15/19 Time of Service: 07:47 Care Management Initial Assess REASON FOR HOSPITALIZATION:: TURP PAST MEDICAL HISTORY/PAST SURGICAL HISTORY:: Flank pain, gallstones, Decreased libido, LUTS, Gross Hematuria PREVIOUS FUNCTIONAL STATUS/SOCIAL/FAMILY SUPPORTS:: Burton resides in [place]. He is independent at baseline, drives, and manages ADL's CURRENT FUNCTIONAL STATUS:: Currently Burton is sitting up in bed, pleasant and receptive to discussion. 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 Herring POTENTIAL DISCHARGE NEEDS:: F/U appointment with Dr. Medrano PATIENT/FAMILY EDUCATION NEEDS:: Review DC instructions, any limitations, and ongoing DC planning discussion. Discuss 'Ask Me Three' ANTICIPATED BARRIERS TO DISCHARGE:: None identified at this time TRANSPORTATION:: Burton has his car in the parking lot and is planning on transporting himself home. PLAN:: Burton will return home with no services. He will F/U with Dr. Medrano and plan of care as prescribed. He will drive himself home.
== END 2019-01-15 11:10 | disposition home or self-care (01) ==
LOC: MS 01-15 08:42 → SUR 01-15 15:08 → PDS 01-15 15:11 → SUR 01-15 15:49 → MS 01-15 15:51
PROVIDERS: Admitting Provider Urology; PCP Family Medicine; Visit Provider Urology
PROC: 0VT08ZZ Resection of Prostate, Via Natural or Artificial Opening Endoscopic (ICD-10-PCS; CPT 52601; principal; 2019-01-14 07:30)
DX: R39.16 Straining to void; R39.12 Poor urinary stream; N21.0 Calculus in bladder; N40.3 Nodular prostate with lower urinary tract symptoms; N40.1 Benign prostatic hyperplasia with lower urinary tract symptoms; N41.1 Chronic prostatitis; N42.89 Other specified disorders of prostate
CPT/HCPCS: 52601; 36415; 80048; 88305; NC; 85014; 85018; G0378; J0690; J1100; J1885; J2250; J2405; J3010

== ENCOUNTER 2019-01-16 10:22 | Emergency (ER) | payer SELFPAY ==
[2019-01-16 10:27] VITALS: BP 131/87; PULSE 89; RESP 14; TEMP 37; O2SAT 94
--- NOTE | 2019-01-16 10:44 | W.ED.GENAD ---
Discharge Plan Disposition Patient Disposition: HOME Condition: Good Discharge Details Chief Complaint: Urinary Clinical Impression: Bladder spasm Primary Care Provider: Reji Herring ED Provider: Ming Butler Home Meds and New Rx's Prescriptions: New oxybutynin chloride 5 mg tablet 5 mg PO Q6H PRN PRN (Reason: bladder spasms) Qty: 2 RF: 0 No Action tramadol 50 mg tablet 50 mg PO Q6H PRN (Reason: pain) Qty: 12 RF: 0 sulfamethoxazole-trimethoprim [Bactrim DS] 800-160 mg tablet 1 tab PO DAILY Qty: 7 RF: 0 finasteride 5 MG tablet 5 mg PO DAILY Qty: 90 RF: 4 gabapentin 600 mg tablet 600 mg PO HS Qty: 90 RF: 4 acetaminophen [Mapap Extra Strength] 500 MG tablet 1,000 mg PO Q6H 5 Days Qty: 60 RF: 0 Ibuprofen [Motrin Ib] 200 MG Tablet 600 mg PO Q6H 5 Days Qty: 60 RF: 0 ibuprofen-diphenhydramine cit [Advil PM] 200-38 mg Tablet 3 tab PO PRN PRNRF: 0 Discharge Instructions Instructions: Overactive Bladder (GEN) Additional Instructions: Please take the suppository every 6 hours. Do not take it after midnight. Please take the oxybutynin as needed every 6 hours, do not take it after midnight. Please follow-up immediately with Dr. Medrano at your scheduled appointment tomorrow morning for removal of your Wilkinson. If you notice any worsening of your symptoms, or any new symptoms such as vomiting, diarrhea, fever, chills, shortness of breath, chest pain, numbness, weakness, or fainting , please return immediately to the emergency department for reevaluation. Please follow up with your primary care provider as soon as possible for reassessment and reevaluation. As always, it was a pleasure participating in your medical care today. Referrals: Ki Medrano MD [ [facility] STAFF PHYSICIAN] - Medical Decision Making This is a pleasant 58-year-old male who just had prostate surgery 3 days ago and is taking tramadol for pain who presents for leaking around his Wilkinson catheter site, as well as blood clots in his Wilkinson catheter bag. He does have associated symptoms of hesitancy, and frequency. Physical exam demonstrates a nontender suprapubic region, no overly distended bladder on exam, and no active discharge around his urethra, blood clots are noted in the bag. We will give the patient oxybutynin, flush his catheter, attempted to remove the clots, and reassess. Wilkinson catheter does appear in place otherwise. Secondary to the surgery I will not be deflating the balloon at this time. 12:04 PM 200 cc of normal saline were instilled, and then the same amount of saline was extracted through the Wilkinson catheter. Small amount of blood, no clots. Urine does appear to be flowing freely through the catheter. Patient's symptoms are minimally improved with oxybutynin. No signs of significant distress. No significant pain. I did contact Dr. Medrano discussed the case with him. He agrees that this is a side effect from the surgery, and does recommend belladonna and opium suppositories, and then close follow-up Friday morning for removal of the Wilkinson. He recommends that we maintain the Wilkinson at this time. Patient has been given his first suppository here and will be given to to go home with. He also be given a prescription for oxybutynin to use as needed. Dr. Medrano does recommend that he takes no oxybutynin after midnight as this could cause retention when the Wilkinson was subsequently removed. We discussed red flags which to return, the importance of his continued follow-up. I have extensively reviewed the treatment plan and discharge instructions with the patient. I have addressed all patient concerns at this time. The patient was made aware of what symptoms to monitor for that would warrant a return to the emergency department. Discussed the plan with the patient, they demonstrate verbal understanding and agreement with our assessment and plan at this time. HPI General Date/Time Provider Initiated Documentation: 01/16/19 10:34. HPI Narrative: This is a 58-year-old male with a past medical history of prostate problems, who recently had prostate surgery [address] Medrano, who presents today for leaking around his Wilkinson catheter. Wilkinson catheter was placed after the surgery, initially he had no significant problems with bleeding. However last night he noticed some clots, and since then he has been having symptoms of urinary frequency, feelings that he needs to pee, and leaking around his catheter site. Patient it does admit to burning as the urine does leak around. Does admit to occasional clots noted in the urine. He is still having urine that is going into the Wilkinson bag, as well as some clots. The patient denies any other symptoms of abdominal pain, back pain, fever or chills. No other modifying factors. Is not on blood thinners. He is not taking any bladder antispasmodics. He is taking tramadol for pain. Related Data Home Medications Medication Instructions Recorded Confirmed finasteride 5 mg PO DAILY #90 tab-cap 05/08/18 01/16/19 Ibuprofen [Motrin Ib] 600 mg PO Q6H 5 Days #60 tablet 06/14/18 01/16/19 acetaminophen [Mapap Extra 1,000 mg PO Q6H 5 Days #60 tab 06/14/18 01/16/19 Strength] gabapentin 600 mg tablet 600 mg PO HS #90 tab 08/06/18 01/16/19 ibuprofen-diphenhydramine cit 3 tab PO PRN PRN 01/14/19 01/16/19 [Advil PM] sulfamethoxazole 800 1 tab PO DAILY #7 tab 01/15/19 01/15/19 mg-trimethoprim 160 mg tablet tramadol 50 mg tablet 50 mg PO Q6H PRN #12 tab 01/15/19 01/16/19 oxybutynin chloride 5 mg PO Q6H PRN PRN #2 tab 01/16/19 Previous Rx's Medication Instructions Recorded finasteride 5 mg PO DAILY #90 tab-cap 05/08/18 Ibuprofen [Motrin Ib] 600 mg PO Q6H 5 Days #60 tablet 06/14/18 acetaminophen [Mapap Extra 1,000 mg PO Q6H 5 Days #60 tab 06/14/18 Strength] gabapentin 600 mg tablet 600 mg PO HS #90 tab 08/06/18 sulfamethoxazole 800 1 tab PO DAILY #7 tab 01/15/19 mg-trimethoprim 160 mg tablet tramadol 50 mg tablet 50 mg PO Q6H PRN #12 tab 01/15/19 oxybutynin chloride 5 mg PO Q6H PRN PRN #2 tab 01/16/19 Allergies Allergy/AdvReac Type Severity Reaction Status Date / Time No Known Allergies Allergy Unverified 01/16/19 10:31 General Stated Complaint: Urinary JEREMY: 3 Review of Systems Review of Systems All systems reviewed & are unremarkable except as noted in HPI and below PFSH Social History Smoking/Tobacco Use Status: Never Drug use: Never Do you feel safe at home: Yes Do you feel safe in your relationship?: Yes Exam Narrative Exam Narrative: 1.Const: Well-nourished, Well-developed, appearing stated age 2.Eyes: PERRL, no conjunctival injection, and symmetrical lids. 3.ENT: Atraumatic external nose and ears. Moist MM. Neck: Symmetric, trachea midline, No thyromegaly. 4.CVS: +S1/S2, No murmurs or gallops. Peripheral pulses 2+ and equal in all extremities. Brisk capillary refill in all extremities. 5.RESP: Unlabored respiratory effort. Clear to auscultation bilaterally. No wheezes rales or rhonchi 6.GI: Soft, Nontender/Nondistended, No hepatosplenomegaly. No guarding or rebound. Wilkinson catheter is in place. No evidence of leaking at this time, however certainly a historical component is present. There is evidence of clots in his Wilkinson bag. No evidence of clots in the catheter that I can view. No penile tenderness, no significant suprapubic tenderness. No flank or CVA tenderness. 7.MSK: Normocephalic/Atraumatic, Extremities w/o deformity or ttp No cyanosis or clubbing, Normal movement of all extremities 8.Skin: Warm, Dry. No rashes or lesions. 9.Neuro: aerial photograph interpreter II-XII grossly intact. Sensation grossly intact, no focal neurologic deficits. 10.Psych: (AAO) x3. Appropriate mood and affect Course Vital Signs Temperature 37.0 C 01/16/19 10:27 Pulse 89 01/16/19 10:27 Respiratory Rate 14 01/16/19 10:27 Blood Pressure 131/87 01/16/19 10:27 Pulse Oximetry 94 L 01/16/19 10:27 Temperature 37.0 C 01/16/19 10:27 Temperature Source Temporal Artery Scan 01/16/19 10:27 Pulse 89 01/16/19 10:27 Respiratory Rate 14 01/16/19 10:27 Respiratory Effort Non-Labored 01/16/19 10:29 Blood Pressure 131/87 01/16/19 10:27 Blood Pressure Position Sitting 01/16/19 10:27 Pulse Oximetry 94 L 01/16/19 10:27 Oxygen Delivery Method Room Air 01/16/19 10:27 Oxygen Flow Rate 0 01/16/19 10:27 Pain Level 0 01/16/19 10:30 Comment 01/16/19 10:27
[2019-01-16] MEDS: Oxybutynin 5 MG TAB PO (11:18)
== END 2019-01-16 12:26 | disposition home or self-care (01) ==
PROVIDERS: Emergency Provider Student in an Organized Health Care Education/Training Program; PCP Family Medicine
DX: N32.89 Other specified disorders of bladder (principal)
CPT/HCPCS: 51700; 99283

== ENCOUNTER 2019-02-22 15:56 | Outpatient (REF) | payer SELFPAY | END 2019-02-22 16:16 | LOC: LBN 15:56 | PROVIDERS: PCP Family Medicine; Visit Provider Urology | DX: R30.0 Dysuria (principal) | CPT/HCPCS: 87086 ==

== ENCOUNTER 2019-07-20 11:10 | Outpatient (CLI) | payer SELFPAY ==
--- NOTE | 2019-07-20 16:30 | DI.RAD_ITS ---
EXAM: XR ABDOMEN FLAT PLATE INDICATION: flank pain Z87.442 HX URINARY CALCULI. COMPARISON: ABDOMEN FLAT PLATE from 09/23/2017 TECHNIQUE: 2D digital imaging was performed. FINDINGS: There are surgical clips in the right upper quadrant of the abdomen. This likely reflects prior chol ecystectomy. No urinary tract calculi are identified. The bowel gas pattern is nonspecific. There are degenerative changes seen in the spine. IMPRESSION: No urinary tract calculi.
== END 2019-07-20 11:30 ==
PROVIDERS: PCP Family Medicine; Visit Provider Nurse Practitioner Gerontology
DX: R10.31 Right lower quadrant pain (principal); Z87.442 Personal history of urinary calculi
CPT/HCPCS: 74018

== ENCOUNTER 2020-10-06 03:10 | Outpatient (CLI) | payer SELFPAY ==
[2020-10-06 09:18] LABS: Calculated LDL 115 mg/dL (<100); Cholesterol 167 mg/dL (<200); Glucose 75 mg/dL (74-106); HDL Cholesterol 35 mg/dL (40-60); Triglyceride 89 mg/dL (<150)
[2020-10-06 20:44] LABS: PSA, Screening 3.4 ng/mL (0.0-4.5)
== END 2020-10-06 03:30 ==
PROVIDERS: PCP Family Medicine; Visit Provider Family Medicine
DX: E78.5 Hyperlipidemia, unspecified (principal); R73.9 Hyperglycemia, unspecified; Z12.5 Encounter for screening for malignant neoplasm of prostate
CPT/HCPCS: 36415; 80061; 82947; 84153

== ENCOUNTER → 2020-10-25 03:23 | Outpatient (CLI) | payer SELFPAY ==
[2020-10-25] MEDS: Simethicone/Sod Bicarb/Cit Ac, 4 gram PACKET 1 PACKET PO (11:19)
[2020-10-25] MEDS: Barium Sulfate 60% W/V 355 ML BTL PO (11:19)
--- NOTE | 2020-10-25 11:20 | DI.RAD_ITS ---
EXAM: RF BARIUM SWALLOW CLINICAL HISTORY: DYSPHAGIA,R13.10 TECHNIQUE: 2D and realtime digital imaging was performed. CONTRAST MATERIAL: Oral barium Oral water soluble contrast was administered. COMPARISON: No exams were available for comparison FINDINGS: ESOPHAGRAM: This study was performed both standing and recumbent. Fly Finisher film reveals no free air under the hemid iaphragm and surgical clips from prior cholecystectomy. Swallowing mechanism appears grossly intact. No aspiration. No Zenker's diverticulum. No obvious h ypertense upper esophageal sphincter. No fixed lesions seen in the esophagus. No hiatal hernia. No Schatzki ring. No obvious reflux demonstrated. IMPRESSION: No obvious abnormality evident on this esophagram study. RADIATION DOSE DELIVERED: 1 minute and 10 sec fluoroscopy time
== END ==
PROVIDERS: PCP Family Medicine; Visit Provider Otolaryngology
DX: R13.10 Dysphagia, unspecified (principal)
CPT/HCPCS: 74221; J3490

== ENCOUNTER 2020-10-27 02:59 | Outpatient (CLI) | payer SELFPAY ==
[2020-10-28 15:29] LABS: COVID-19 RT-PCR UVMMC Result Negative (Negative)
== END 2020-10-27 03:19 ==
PROVIDERS: PCP Family Medicine; Visit Provider Internal Medicine Cardiovascular Disease
DX: Z11.52 Encounter for screening for COVID-19 (principal); Z01.810 Encounter for preprocedural cardiovascular examination
CPT/HCPCS: U0003

== ENCOUNTER 2020-11-03 02:39 | Outpatient (CLI) | payer SELFPAY ==
[2020-11-04 16:51] LABS: COVID-19 RT-PCR Result NEGATIVE (Negative)
== END 2020-11-03 02:59 ==
PROVIDERS: PCP Family Medicine; Visit Provider Internal Medicine Cardiovascular Disease
DX: Z11.52 Encounter for screening for COVID-19 (principal)
CPT/HCPCS: U0003

== ENCOUNTER → 2020-11-08 01:53 | Outpatient (CLI) | payer SELFPAY ==
--- NOTE | 2020-11-08 07:15 | DI.NM_ITS ---
APPROVED REPORT Exam: Exercise Treadmill Patient Location: Out-Patient Room/Bed: Stress Nurse: Annette Sharpe RN Ordering Provider:ANGELA MOTT, Contact Number: [phone] BMI: 34.43 Baseline Rhythm: Sinus Rhythm Indications: SOB on exertion, chest pain Medical History Medical History: Hypertension, obesity Cardiac Medications: Propranolol Allergies: NKA Cardiac Risk Factors: Hypertension, obesity Previous Cardiac Procedures: None Pretest Chest Pain Characteristics: None Exercise History: Sedentary Physical Disabilities: None Lung Sounds: Clear to auscultation Heart Sounds: Regular Stress Test Details Test: Exercise stress testing was performed using a Neo protocol. Nuclear Acquisition: Rest Tc-99m/Stress Tc-99m 1 day Rest Isotope: Tc-99m Sestamibi. Dose: 14.5 Date: 11/08/20 Injection Time: 1045 Stress Isotope: Tc-99m Sestamibi. Dose: 46 Date: 11/08/20 Injection Time: 1303 HR Resting HR Supine: 79 bpm Max Heart Rate (APMHR): 159.249076 bpm Resting HR Standin bpm Target HR (85% APMHR): 135.214806 bpm Max HR Achieved: 162 bpm % of APMHR: 101.89 Recovery HR: 98 bpm HR response to stress: Normal HR response to stress Comment: Propranolol held for Stress Test. BP Resting BP Supine: 150/100 mmHg Resting BP Standin/98 mmHg Max BP: 184/96 mmHg Recovery BP: 162/100 mmHg BP response to stress: Normal blood pressure response to stress. ECG Resting ECG: Sinus Rhythm Ectopy: None Stress ECG: Sinus Tachycardia ST Change: No significant ST segment changes noted Arrhythmia: PVCs, PACs Recovery ECG: Sinus Rhythm Recovery ST Change: No significant ST segment changes noted Recovery Arrhythmia: None Clinical Reason for Termination: Dyspnea, Fatigue Stress Symptoms: Dyspnea, General Fatigue Exercise duration: 7 min50 sec Highest Stage Reached: Stage 3: 3.4 mph at 14% grade. Exercise capacity: 9.89 METs Cheatham Treadmill Score: 6.5 Rate Pressure Product: [id number] Stress ECG Conclusion 1. Resting EKG was normal 2. The patient exercised on the Neo protocol and completed a workload of 9.89 METS, stopping due to shortness of breath and general fatigue 3. Normal heart rate and blood pressure response to exercise. The patient achieved 101% of predicted heart rate for age 4. Electrocardiographically there was no evidence of myocardial ischemia 5. Occasional atrial and ventricular ectopic beats were noted Cheatham Treadmill Score is 6.5 which is Low risk. Stress Test Summary STAGE Time (mins) Speed (mph) Grade (%) HR BP SYMPTOMS METS Supine 79 150/100 Standing 89 124/98 1 3 1.7 10 138 4.6 2 6 2.5 12 154 178/100 7 1 min recovery 145 184/96 3 min recovery 106 178/102 6 min recovery 100 172/110 9 min recovery 98 162/100 MPI Conclusion Normal myocardial perfusion. There is no myocardial ischemia or evidence of prior infarction. EF is 51% Radiologist Interpretation Radiologist Interpretation by: Cristofer Amador MD Interpretation Date/Time: 11/08/2020 16:43:47
== END ==
PROVIDERS: PCP Family Medicine; Visit Provider Family Medicine
DX: R07.9 Chest pain, unspecified (principal); R06.02 Shortness of breath; I10 Essential (primary) hypertension; E66.9 Obesity, unspecified
CPT/HCPCS: 78452; 93017

== ENCOUNTER 2021-10-04 02:29 | Outpatient (CLI) | payer SELFPAY ==
[2021-10-05 17:59] LABS: PSA, Screening 2.9 ng/mL (0.0-4.5)
== END 2021-10-04 02:30 | disposition home or self-care (01) ==
LOC: LBO 02:30
PROVIDERS: PCP Family Medicine; Visit Provider Nurse Practitioner Gerontology
DX: R39.9 Unspecified symptoms and signs involving the genitourinary system (principal); R97.20 Elevated prostate specific antigen [PSA]
CPT/HCPCS: 84153

== ENCOUNTER 2023-07-22 13:49 | Outpatient (CLI) | payer SELFPAY | END 2023-07-22 13:50 | disposition home or self-care (01) | LOC: DI.CM 13:50 | PROVIDERS: PCP Family Medicine; Visit Provider Family Medicine | DX: R07.9 Chest pain, unspecified (principal) | CPT/HCPCS: 93010 ==

== ENCOUNTER 2023-07-29 19:37 | Outpatient (CLI) | payer SELFPAY ==
[2023-07-29 07:44] LABS: HCT 44.9 % (40.0-50.0); HGB 15.6 g/dL (13.5-17.5); MCH 30.3 pg (27.0-33.0); MCHC 34.7 % (32.0-36.0); MCV 87 fL (80-95); MPV 10.5 fL (8.0-11.0); Platelet Count 247 10^3/uL (130-400); RBC 5.15 10^6/uL (4.36-5.78); RDW-SD 38.4 fL; WBC 6.93 10^3/uL (4.4-10.8)
[2023-07-30 11:06] LABS: Lyme Ab w Rflx to Lyme Confirm Negative (Negative)
[2023-08-01 00:44] LABS: Anaplasma phagocytophilum Negative (Negative); B. miyamotoi PCR Negative (Negative); Babesia divergens/MO-1 Negative (Negative); Babesia duncani Negative (Negative); Babesia microti Negative (Negative); Ehrlichia chaffeensis Negative (Negative); Ehrlichia ewingii/canis Negative (Negative); Ehrlichia muris eauclairensis Negative (Negative)
[2023-08-01 09:50] LABS: Testosterone, Total 398 ng/dL (240-950)
== END 2023-07-29 19:38 | disposition home or self-care (01) ==
LOC: LBO 19:39
PROVIDERS: PCP Family Medicine; Visit Provider Urology
DX: R53.83 Other fatigue (principal)
CPT/HCPCS: 36415; 84403; 85027; 87798; 84443; 86618

== ENCOUNTER 2023-10-17 10:13 | Outpatient (CLI) | payer SELFPAY ==
[2023-10-17 08:30] LABS: Bilirubin Negative (Negative); Blood Negative (Negative); Clarity Clear (Clear); Glucose Negative (Negative); Ketones Negative (Negative); Leukocyte Esterase Negative (Negative); Nitrite Negative (Negative); Specific Gravity 1.025 (1.005-1.025); Urobilinogen 0.2 mg/dL (Up to 0.2); pH 5.5 (5-8)
[2023-10-17 08:36] LABS: Anion Gap 4.5 mmol/L (3-11); BUN 17 mg/dL (7-18); CO2 29.5 mmol/L (21.0-32.0); CREATININE 1.1 mg/dL (0.70-1.30); Calcium 8.9 mg/dL (8.5-10.1); Chloride 103 mmol/L (98-107); Estimated GFR 74.96 (mL/min/1.73m2); Glucose 102 mg/dL (74-106); Potassium 3.7 mmol/L (3.5-5.1); Sodium 137 mmol/L (136-145)
[2023-10-17 21:16] LABS: PSA, Diagnostic 3.8 ng/mL (<=4.5)
[2023-10-22 02:34] LABS: Testosterone, Total 544 ng/dL (240-950)
== END 2023-10-17 10:14 | disposition home or self-care (01) ==
LOC: LBO 10:13
PROVIDERS: PCP Family Medicine; Visit Provider Urology
DX: R53.83 Other fatigue (principal); N41.1 Chronic prostatitis; R97.20 Elevated prostate specific antigen [PSA]; R39.89 Other symptoms and signs involving the genitourinary system; G89.4 Chronic pain syndrome
CPT/HCPCS: 36415; 80048; 84403; 81003; 84153; 87086

== ENCOUNTER → 2024-06-11 15:15 | Outpatient (BNVA) | payer MEDICARE, SELFPAY | PROVIDERS: PCP Family Medicine; Referring Provider Family Medicine; Visit Provider Urology | DX: R10.9 Unspecified abdominal pain (principal) | CPT/HCPCS: 99443 ==

== ENCOUNTER 2024-07-02 00:09 | Outpatient (CLI) | payer MEDICARE, SELFPAY ==
--- NOTE | 2024-07-02 07:22 | DI.CT_ITS ---
Exam(s) CT ABDOMEN PELVIS W EXAM: CT ABDOMEN PELVIS W CLINICAL HISTORY: ? diverticulitis,abd pain,r10.9. TECHNIQUE: Imaging Protocol: Axial computed tomography images with coronal and sagittal reformatted images were created and reviewed CONTRAST MATERIAL: Intravenous: Omnipaque 350 Contrast volume:100 ml Oral: yes / COMPARISON: CT ABD PELVIS WO CONTRAST from 06/14/2018 FINDINGS: ABDOMEN and PELVIS: Lung Bases: No acute findings. Liver: Normal density. No suspicious mass. Gallbladder and biliary tract: Status post cholecystectomy. No biliary dilation. Pancreas: Normal density. No abnormal calcifications or inflammatory process. No evidence of mass. Spleen: Normal. Kidneys: Normal size, contour and axis. No radiodense stones. No obstructive uropathy. No suspicious masses seen. Adrenal glands: No masses seen. Vasculature: Abdominal aorta non-dilated. Soft tissues: Unremarkable. Bladder: No gross wall thickening. No calculi.No focal mass. Bowel: Administered oral contrast extends to the level of the rectum. No obstruction. No bowel wal l thickening. Appendix normal. No significant diverticulosis. Peritoneal cavity: No ascites. No focal collection. No mesenteric inflammatory response. Bones: Stable appearance of mild compression fractures at T12 and L1 as well as partial fusion betwee n these 2 vertebral bodies. Degenerative changes throughout. Reproductive organs: Prostate mildly enlarged. Lymph nodes: No pathologically enlarged lymph nodes. IMPRESSION:: No acute abnormality in the abdomen or pelvis. No evidence of diverticulitis. RADIATION DOSE DELIVERED: 581.48mGy.cm Total DLP DATA REPOSITORY: All CT scans at this facility are submitted to the National Radiology Data Registry (NRDR) Dose Index Registry (DIR) with the [employer] (A[employer]). RADIATION OPTIMIZATION: All CT scans at this facility use at least one of these dose optimization te chniques: automated exposure control; mA and/or kV adjustment per patient size (includes targeted exa ms where dose is matched to clinical indication); or iterative reconstruction.
[2024-07-02 07:45] LABS: Abs Immature Grans 0.04 10^3/uL (0.0-0.06); Absolute Basophil Count 0.02 10^3/uL (0.0-0.2); Absolute Eosinophil Count 0.06 10^3/uL (0.0-0.7); Absolute Lymphocyte Count 1.21 10^3/uL (1.2-3.4); Absolute Monocyte Count 0.64 10^3/uL (0.1-0.8); Absolute Neutrophil Count 5.25 10^3/uL (1.2-6.7); Basophils % 0.3 %; Eosinophils % 0.8 %; HCT 42.9 % (40.0-50.0); HGB 14.7 g/dL (13.5-17.5); Immature Grans % 0.6 %; Lymphocytes % 16.8 %; MCH 30.6 pg (27.0-33.0); MCHC 34.3 % (32.0-36.0); MCV 89 fL (80-95); MPV 10.2 fL (8.0-11.0); Monocytes % 8.9 %; Neutrophils % 72.6 %; Platelet Count 218 10^3/uL (130-400); RBC 4.81 10^6/uL (4.36-5.78); RDW 12.2 % (11.8-14.1); RDW-SD 39.9 fL; WBC 7.22 10^3/uL (4.4-10.8)
[2024-07-02] MEDS: Barium Sulfate 2% W/V-Berry Smoothie 450 ML BTL PO ×2 (07:47→07:48)
[2024-07-02 07:54] LABS: CREATININE 1.1 mg/dL (0.70-1.30)
[2024-07-02] MEDS: Omnipaque 350 MG/ML 100 ML BTL IJ (10:02)
[2024-07-02] MEDS: Normal Saline - Diluent 50 ML VIAL IJ (10:05)
[2024-07-05 08:52] LABS: PSA, Diagnostic 3.3 ng/mL (<=4.5)
== END 2024-07-02 00:29 ==
PROVIDERS: PCP Family Medicine; Visit Provider Urology
DX: N41.1 Chronic prostatitis (principal); G89.4 Chronic pain syndrome; R05.3 Chronic cough; N40.0 Benign prostatic hyperplasia without lower urinary tract symptoms
CPT/HCPCS: 74177; 82565; 84153; 85025; J3490

== ENCOUNTER 2025-02-04 07:07 | Outpatient (CLI) | payer MEDICARE, SELFPAY ==
--- NOTE | 2025-02-04 07:00 | RT.EKG_ITS ---
APPROVED REPORT Exam: Resting ECG Reason for Exam: CP Patient Location: O HR:64 bpm ECG Measurements Heart Rate 64 AXIS OR 179 P -12 QRSd 116 QRS 7 QT 429 T -2 QTc 443 Conclusion Sinus rhythm...normal P axis, V-rate 50- 99 Normal Electrocardiogram
== END 2025-02-04 07:08 | disposition home or self-care (01) ==
LOC: DI.CM 07:08
PROVIDERS: PCP Family Medicine; Visit Provider Nurse Practitioner Family
DX: R07.9 Chest pain, unspecified (principal); R06.00 Dyspnea, unspecified
CPT/HCPCS: 93010

== ENCOUNTER 2025-02-07 01:42 | Outpatient (CLI) | payer MEDICARE, SELFPAY ==
--- NOTE | 2025-02-07 06:45 | DI.NM_ITS ---
APPROVED REPORT Exam: Pharmacologic Patient Location: Out-Patient Room/Bed: Stress Nurse: Precious Eaton RN Ordering Provider:MYAH ARGUETA, Contact Number: [phone] BMI: 33.14 Baseline Rhythm: Sinus Bradycardia Indications: Intermittent chest pain, dyspnea on exertion, Medical History Medical History: Chronic ROSS and chest pain x 5 years, radiates to left arm, poor historian, had MPI in 2020 that was negative, HTN, HLD, (prescribed losartan and propranolol but not compliant), BPH, fa tigue, prostatitis Cardiac Medications: Albuterol, losartan, propranolol, tadalafil Allergies: NKA Cardiac Risk Factors: HTN, HLD Previous Cardiac Procedures: None Pretest Chest Pain Characteristics: None Exercise History: Sedentary Physical Disabilities: Bilat leg pain and numbness Lung Sounds: Diminished bilat bases Heart Sounds: Regular Stress Test Details Test: Pharmacologic stress was paired with low level exercise. Reason for pharmacologic stress test: physical limitation. Nuclear Acquisition: Rest Tc-99m/Stress Tc-99m 1 day Rest Isotope: Tc-99m Sestamibi. Dose: 12.0 Date: 02/07/2025 Injection Time: 0845 Stress Isotope: Tc-99m Sestamibi. Dose: 36.0 Date: 02/07/2025 Injection Time: 1020 HR Resting HR Supine: 54 bpm Max Heart Rate (APMHR): 155 bpm Resting HR Standin bpm Target HR (85% APMHR): 132 bpm Max HR Achieved: 121 bpm % of APMHR: 78 Recovery HR: 65 bpm BP Resting BP Supine: 178/108 mmHg Resting BP Standin/98 mmHg Max BP: 178/108 mmHg Recovery BP: 160/98 mmHg ECG Resting ECG: Sinus Bradycardia Stress ECG: Sinus Tachycardia ST Change: Nondiagnostic low heart rate Arrhythmia: Occasioanl PAC's Recovery ECG: Sinus Rhythm Recovery ST Change: Nondiagnostic low heart rate Clinical Stress Symptoms: Bilat leg heaviness Angina Score: None Rate Pressure Product: [id number] Stress ECG Conclusion 1. Resting electrocardiogram was normal 2. Patient underwent testing using a combination of low-level exercise and pharmacologic stress with regadenoson 3. Hypertension noted throughout. Peak heart rate was 78% of maximal predicted heart rate for age 4. Electrocardiographic portion of the test was nondiagnostic 5. See MPI report Stress Test Summary STAGE HR BP SpO2 Symptoms NOTES Supine 54 178/108 97% Standing 60 154/98 1 min post Lexiscan injection 108 168/84 3 min post Lexiscan injection 77 158/90 6 min post Lexiscan injection 65 160/98 Patient c/o bilat leg heaviness on treadmill post lexiscan injection. All symptoms resolved at end of stressportion of test. MPI Conclusion Myocardial perfusion is normal. There is no ischemia or evidence of prior infarction Calculated EF is 46%. Wall motion is normal
--- NOTE | 2025-02-07 06:51 | DI.RAD_ITS ---
Exam(s) XR CHEST 2V PA LATERAL EXAM: XR CHEST 2V PA LATERAL CLINICAL HISTORY: dyspnea on exertion,r06.00 TECHNIQUE: 2D digital imaging was performed of the chest. Two images were obtained. PA and lateral views were obtained. COMPARISON: CR,RF RF BARIUM SWALLOW from 10/25/2020 FINDINGS: MEDIASTINUM: Normal. HEART: Normal. PULMONARY VASCULATURE: Normal. LUNGS: Clear. PLEURAL SPACE: No pleural effusion or pneumothorax. BONE:Within normal limits for the patient's age. OTHER FINDINGS:There is again seen elevation of the left hemidiaphragm. IMPRESSION: No acute pulmonary findings. DATA REPOSITORY: RADIATION DOSE DELIVERED:
[2025-02-07] MEDS: Regadenoson 0.4 MG/5 ML SYR IVP (11:22)
== END 2025-02-07 02:02 ==
PROVIDERS: PCP Family Medicine; Visit Provider Internal Medicine Cardiovascular Disease
DX: R06.00 Dyspnea, unspecified (principal); R07.9 Chest pain, unspecified; I10 Essential (primary) hypertension
CPT/HCPCS: 78452; 93016; 93018; 71046; 93017; J2785

== ENCOUNTER 2025-02-24 00:53 | Outpatient (CLI) | payer MEDICARE, SELFPAY ==
--- NOTE | 2025-02-24 08:30 | DI.US_ITS ---
APPROVED REPORT EXAM: Comprehensive 2D, Doppler, and color-flow Echocardiogram Patient Location: Out-Patient Loan Coordinator: Trey Sethi RDCS (AE) Indications: Chronic ROSS Conclusion Normal left ventricular wall thickness and chamber size. Ejection fraction is 60 to 65%. Wall motio n is normal Normal right ventricular size and function Both atria are normal in size Aortic valve is mildly sclerotic and trileaflet without stenosis or regurgitation Estimated right ventricular systolic pressure is 40 mmHg Ascending aorta measures 4.08 cm Wall motion Left Ventricle The left ventricle is normal size. The left ventricular systolic function is normal. The left ventric ular ejection fraction is within the normal range. There is normal left ventricular wall thickness. T here is normal LV segmental wall motion. There is no ventricular septal defect visualized. LVEF is 60 -65%. Right Ventricle The right ventricle is normal size. The right ventricle is normal size. The right ventricular systoli c function is normal. Atria The left atrium size is normal. The right atrium size is normal. The interatrial septum is intact wit h no evidence for an atrial septal defect. Aortic Valve The aortic valve is mildly sclerotic. Aortic valve is trileaflet. There is no aortic valvular stenosi s. No aortic regurgitation is present. Mitral Valve The mitral valve is normal in structure. No evidence of mitral valve stenosis. Trace mitral regurgita tion. Tricuspid Valve The tricuspid valve is normal in structure. There is no tricuspid valve stenosis. Trace tricuspid reg urgitation. The RVSP is 40.5 mmHg. Pulmonic Valve The pulmonary valve is normal in structure. There is no pulmonic valvular stenosis. Moderate pulmonic regurgitation. Great Vessels Aortic root is moderately dilated. The ascending aorta is dilated. Aortic arch is normal in caliber. IVC is normal in size and collapses >50% with inspiration. Pericardium Mild circumferential pericardial effusion. 2D Dimensions IVSD d PLAX 0.84 cm M: 0.6-1.2 Ao Root d 3.86 cm M: 3.1 - 3.7 LVPW d PLAX 0.77 cm M: 0.6 - 1.2 Ao Asc Diam d 4.08 cm M: 2.6 - 3.4 LVID d PLAX 5.79 cm M: 4.2 - 5.8 LVDs 3.88 cm M: 2.5 - 4.0 LV EF Teichholz 60.7 % FS 32.96 % LV EDV (Teich) 165.6 mL LV ESV (Teich) 65.0 mL Stroke Vol Index (Teich) 45.29 M-Mode TAPSE 2.88 cm (M/F) >1.7 Auto EF LV EDV A4C 153.2 mL LV EDV A2C 140.9 mL LV EDV BP 148.3 mL LV ESV A4C 58.8 mL LV ESV A2C 55.5 mL LV ESV BP 57.3 mL LVEF(%) A4C 61.6 % LVEF(%) A2C 60.6 % LVEF(%) BP 61.4 % LV SV A4C 94.4 ml LV SV A2C 85.5 ml LV SV BP 91.1 ml LV CO A4C 6.1 L/min LV CO A2C 5.3 L/min LV CO BP 5.7 L/min HR A4C 64.38 BPM HR A2C 61.54 BPM LV EDV Index (BP) LA Volume LA Length A4C 4.6 cm LA Length A2C 5.6 cm LA Area A4C s 13.02 cm2 LA Area A2C s 16.97 cm2 LA Vol A4C A-L 31.31 mL LA Vol A2C A-L 43.38 mL LA Vol Biplane A-L 40.8 mL LA Vol/BSA A4C A-L LA Vol/BSA A2C A-L LA Vol/BSA BP A-L 18.4 mL/m2 LA Vol A4C MOD 30.8 mL LA Vol A2C MOD 41.0 mL LA Vol BP MOD 39.1 mL RA Volume RA Area A4C 10.3 cm2 RA ESV A4C (A-L) 17.4mL RA Vol/BSA A4C A-L RA Length A4C 5.1 cm RA ESV A4C (MOD) 16.9mL LV Diastology MV E' medial 0.077 (>0.07 m/s) MV E Vmax 0.88 (0.4-1.3 m/s) MV E/E' MED 11.53 (<14) MV A Vmax 0.70 (0.4-1.3 m/s) MV E' lateral 0.121 (>0.1 m/s) E/A Ratio 1.3 MV E/E' LAT 7.32 (<14) MV E' Average 0.099 m/s MV E/E'(average) 8.95 Aortic Valve AoV Vmax 1.34 m/s LVOT Vmax 1.01 m/s AoV Peak Grad 7.2 mmHg LVOT Peak Grad 4.0 mmHg AoV Area (Vmax) 2.97 cm2 LVOT VTI 0.250 m AoV VTI 0.307 m LVOT Mean Grad 2.2 mmHg AoV Mean Aaron. 0.88 m/s LVOT SV 99.06 mL AoV Mean Grad 3.7 mmHg LVOT Diam s 2.20 cm AoV Area (VTI) 3.23 cm2 AV Regurg Peak Gr. 7.19 mmHg Velocity Ratio 0.75 Mitral Valve MV DT 182 (160-240 msec) Pulmonary Valve PV Vmax 1.08 (0.5-1.5 m/s) RVOT Vmax 0.57 m/s PV Peak Grad 4.7 mmHg RVOT Peak Gr. 1.3 mmHg PV Mean Aaron 0.72 m/s RVOT VTI 0.122 m PV Mean Grad 2.4 mmHg RVOT Mean Gr. 0.7 mmHg Tricuspid Valve RA Pressure 3.00 mmHg TR Vmax 3.06 m/s TR Peak Grad 37.4 mmHg RVSP (TR) 40.5 mmHg
== END 2025-02-24 01:13 ==
LOC: DI 00:53
PROVIDERS: PCP Family Medicine; Visit Provider Internal Medicine Cardiovascular Disease
DX: R06.00 Dyspnea, unspecified (principal); I35.0 Nonrheumatic aortic (valve) stenosis
CPT/HCPCS: 93306

== ENCOUNTER → 2025-04-11 14:55 | Outpatient (BNVA) | payer MEDICARE, SELFPAY | PROVIDERS: PCP Family Medicine; Referring Provider Family Medicine; Visit Provider Physical Therapy Assistant | DX: M79.604 Pain in right leg (principal); M79.605 Pain in left leg; R09.89 Other specified symptoms and signs involving the circulatory and respiratory systems | CPT/HCPCS: 93922 ==

== ENCOUNTER 2025-06-17 01:21 | Outpatient (CLI) | payer MEDICARE, SELFPAY ==
[2025-06-17] MEDS: Levalbuterol HFA 15 GM INH 4 PUFF IH (16:45)
[2025-06-17] MEDS: Inhaler, Assist Device 1 EACH MC (16:45)
--- NOTE | 2025-06-22 12:52 | W.PFT ---
Date of service: 06/17/25 Time of Service: 15:31 Pulmonary Function Test Result Indications: dyspnea Impression 1. Good patient effort was noted. ATS standards for reproducibility were met. 2. No obstructive lung disease on spirometry. FVC was reduced at 61% 3. Following the administration of a bronchodilator there was not a significant response 4. TLC was reduced at 74% predicted, consistent with mild restrictive lung disease 5. DLCO was normal at 107% predicted
== END 2025-06-17 01:22 | disposition home or self-care (01) ==
LOC: RT 01:21
PROVIDERS: PCP Family Medicine; Visit Provider Family Medicine
DX: R06.09 Other forms of dyspnea (principal); J98.4 Other disorders of lung
CPT/HCPCS: 94729; 94726; 94060

== ENCOUNTER 2025-06-27 07:21 | Outpatient (CLI) | payer MEDICARE, SELFPAY ==
[2025-06-27 17:04] LABS: Abs Immature Grans 0.03 10^3/uL (0.0-0.06); HCT 43.3 % (40.0-50.0); HGB 15.4 g/dL (13.5-17.5); Immature Grans % 0.4 %; MCH 31.2 pg (27.0-33.0); MCHC 35.6 % (32.0-36.0); MCV 88 fL (80-95); MPV 10.3 fL (8.0-11.0); Platelet Count 256 10^3/uL (130-400); RBC 4.93 10^6/uL (4.36-5.78); RDW 12.2 % (11.8-14.1); RDW-SD 39.3 fL; WBC 7.05 10^3/uL (4.4-10.8)
[2025-06-27 17:40] LABS: Hemoglobin A1C 5.3 % (<5.7)
[2025-06-27 17:42] LABS: ALT 36 U/L (16-63); AST 19 U/L (15-37); Albumin 3.8 g/dL (3.4-5.0); Alkaline Phosphatase 119 U/L (46-116); Anion Gap 6.3 mmol/L (3-11); BUN 11 mg/dL (7-18); Bilirubin, Total 0.6 mg/dL (0.2-1.0); CO2 31.7 mmol/L (21.0-32.0); Calcium 8.5 mg/dL (8.5-10.1); Chloride 103 mmol/L (98-107); Estimated GFR 83.01 (mL/min/1.73m2); Glucose 105 mg/dL (74-106); NT-proBNP 55 pg/mL (<300); Potassium 3.6 mmol/L (3.5-5.1); Sodium 141 mmol/L (136-145); TSH (W/Ref FT4) 3.87 uIU/mL (0.36-3.74); Total Protein 7.0 g/dL (6.4-8.2)
[2025-06-27 18:35] LABS: Calculated LDL 103 mg/dL (<100); Cholesterol 167 mg/dL (<200); HDL Cholesterol 38 mg/dL (>or=40); Triglyceride 133 mg/dL (<150)
[2025-06-28 19:01] LABS: PSA, Screening 3.0 ng/mL (<=4.5)
== END 2025-06-27 07:22 | disposition home or self-care (01) ==
LOC: LBO 06-28 07:21
PROVIDERS: Nurse Practitioner Family; PCP Family Medicine; Visit Provider Family Medicine
DX: R07.9 Chest pain, unspecified (principal); R73.01 Impaired fasting glucose; R06.00 Dyspnea, unspecified; R53.83 Other fatigue; Z12.5 Encounter for screening for malignant neoplasm of prostate
CPT/HCPCS: 36415; 80053; 80061; 84153; 83036; 83880; 84439; 84443; 85025

== ENCOUNTER → 2025-07-29 15:26 | Outpatient (BNVA) | payer MEDICARE, SELFPAY | PROVIDERS: PCP Family Medicine; Referring Provider Family Medicine; Visit Provider Urology | DX: N41.1 Chronic prostatitis (principal); G89.4 Chronic pain syndrome; R68.82 Decreased libido; R53.83 Other fatigue | CPT/HCPCS: 99215 ==

== ENCOUNTER 2025-08-09 08:01 | Outpatient (CLI) | payer MEDICARE, SELFPAY ==
[2025-08-09 07:38] LABS: Magnesium 2.0 mg/dL (1.8-2.4)
== END 2025-08-09 08:02 | disposition home or self-care (01) ==
LOC: LBO 08:02
PROVIDERS: PCP Family Medicine; Visit Provider Urology
DX: R53.83 Other fatigue (principal); R68.82 Decreased libido
CPT/HCPCS: 36415; 84403; 83735; 84100